=== PATIENT | female | born 1960 | race Two or more races ===

== ENCOUNTER 2020-12-24 21:41 | Emergency (ER) | payer SELFPAY | END 2020-12-24 22:34 | disposition left against medical advice (07) | LOC: MW.ED 21:41 | DX: M79.609 Pain in unspecified limb (principal); Z53.21 Procedure and treatment not carried out due to patient leaving prior to being seen by health care provider ==

== ENCOUNTER 2021-08-29 08:17 | Day surgery (SDC) | payer OTHER ==
[~2021-08-29 08:17] MED LIST: Lactated Ringers 1,000 ML IV SCH; Propofol 200 MG/20 ML SDV ONE; fentaNYL 100 MCG/2 ML SDV ONE
[2021-08-29] MEDS ORDERED: fentaNYL 100 MCG/2 ML SDV ONE (09:31)
[2021-08-29] MEDS ORDERED: Lidocaine 2% 5 ML SDV ONE (09:31)
[2021-08-29] MEDS ORDERED: Propofol 200 MG/20 ML SDV ONE ×2 (09:31→10:07)
== END 2021-08-29 10:57 | disposition home or self-care (01) ==
LOC: MW.SDS 08:17
PROVIDERS: ATTEND Surgery
DX: D12.6 Benign neoplasm of colon, unspecified (principal); K57.31 Diverticulosis of large intestine without perforation or abscess with bleeding; R22.1 Localized swelling, mass and lump, neck; K64.8 Other hemorrhoids; K64.4 Residual hemorrhoidal skin tags; F17.210 Nicotine dependence, cigarettes, uncomplicated; K20.90 Esophagitis, unspecified without bleeding; Z98.890 Other specified postprocedural states; Z91.018 Allergy to other foods
CPT/HCPCS: 00813; J2704; J3010; J7120